=== PATIENT | female | born 1995 | race Caucasian/White ===

== ENCOUNTER 2020-04-13 17:18 | Emergency (ER) | payer OTHER ==
[~2020-04-13] VITALS: Ht 165.1 cm; Wt 80.0 kg
[2020-04-13 17:44] LABS: BASOPHILS % (AUTO) 1 % (0-1); EOSINOPHILS % (AUTO) 0 % (1-7); LYMPHOCYTES % (AUTO) 30 % (22-44); MEAN CORPUSCULAR HEMOGLOBIN 30.8 pg (27.0-34.8); MEAN CORPUSCULAR HGB CONC 34.1 g/dL (32.4-35.8); MEAN PLATELET VOLUME 8.8 fL (7.4-10.4); MONOCYTES % (AUTO) 6 % (2-9); NEUTROPHILS % (AUTO) 63 % (42-75); PLATELET COUNT 344 x10^3/uL (130-400); RED BLOOD COUNT 4.42 x10^6/uL (3.82-5.3); RED CELL DISTRIBUTION WIDTH 13.1 % (9.6-15.2)
[2020-04-13 17:51] LABS: MD NO
[2020-04-13 17:54] LABS: ALANINE AMINOTRANSFERASE 16 U/L (12-78); ALBUMIN 3.8 g/dL (3.4-5.0); ANION GAP 7 mmol/L (5-15); CALCIUM 8.4 mg/dL (8.5-10.1); CHLORIDE 106 mmol/L (98-107); CREATININE 0.61 mg/dL (0.55-1.02)
--- NOTE | 2020-04-13 18:10 | NUR ---
patient undressed, provided with gown and warm blanket, signifiant other at bedside.
[2020-04-13 18:11] LABS: ALKALINE PHOSPHATASE 39 U/L (45-117); BILIRUBIN,TOTAL 0.2 mg/dL (0.2-1.0); TOTAL PROTEIN 7.6 g/dL (6.4-8.2)
--- NOTE | 2020-04-13 18:57 | NUR ---
REPORT FROM MARY Connor RN ASSUMING CARE OF PT AT THIS TIME
--- NOTE | 2020-04-13 19:29 | NUR ---
SLIP SENT TO K FOR RHOGAM
[2020-04-13 19:37] VITALS: BP 101/57
--- NOTE | 2020-04-13 19:42 | NUR ---
consent obtained, rhogam given, pt tolerated well, will recheck vs per protocol Addendum: 04/13/20 at 1947 by JONA VERIFIED WITH CHELO GARCIA PRIOR TO ADMIN
[2020-04-13 20:04] VITALS: BP 111/62
--- NOTE | 2020-04-13 20:05 | NUR ---
vitals rechecked pt ok to dc per erp at this time. Patient/Caregiver given discharge instructions and they have confirmed that they understand the instructions. Patient ambulatory with steady gait.
== END 2020-04-13 20:11 | disposition home or self-care (01) ==
LOC: ED 19:12
DX: O20.0 Threatened abortion (principal); Z3A.09 9 weeks gestation of pregnancy
CPT/HCPCS: 36415; 76801; 80053; 84702; 85025; 86850; 86900; 99284; J2790; 36430; 99285

== ENCOUNTER 2020-08-29 18:39 | Observation (INO) | payer OTHER ==
[~2020-08-29] VITALS: Ht 165.1 cm; Wt 87.3 kg
[2020-08-29 19:01] LABS: MICROSCOPIC INDICATED
[2020-08-29] MEDS ORDERED: LACTATED RINGERS 1,000 ML IVBOLUS ONE (20:00)
[2020-08-29] MEDS ORDERED: ONDANSETRON 2MG/ML, 2ML IVPush ONE (20:00)
[2020-08-29 20:16] LABS: BASOPHILS % (AUTO) 0 % (0-1); EOSINOPHILS % (AUTO) 1 % (1-7); LYMPHOCYTES % (AUTO) 18 % (22-44); MEAN CORPUSCULAR HEMOGLOBIN 30.5 pg (27.0-34.8); MEAN CORPUSCULAR HGB CONC 34.1 g/dL (32.4-35.8); MEAN PLATELET VOLUME 9.3 fL (7.4-10.4); MONOCYTES % (AUTO) 8 % (2-9); NEUTROPHILS % (AUTO) 73 % (42-75); PLATELET COUNT 280 x10^3/uL (130-400); RED BLOOD COUNT 3.84 x10^6/uL (3.82-5.3); RED CELL DISTRIBUTION WIDTH 12.6 % (9.6-15.2)
[2020-08-29 20:20] LABS: MD NO
[2020-08-29 20:24] LABS: ALANINE AMINOTRANSFERASE 13 U/L (12-78); ALBUMIN 2.6 g/dL (3.4-5.0); ANION GAP 6 mmol/L (5-15); CALCIUM 8.3 mg/dL (8.5-10.1); CHLORIDE 108 mmol/L (98-107); CREATININE 0.47 mg/dL (0.55-1.02)
[2020-08-29 20:26] LABS: ALKALINE PHOSPHATASE 79 U/L (45-117); BILIRUBIN,TOTAL 0.3 mg/dL (0.2-1.0); TOTAL PROTEIN 6.8 g/dL (6.4-8.2)
[2020-08-29 21:47] LABS: MICROSCOPIC INDICATED
== END 2020-08-29 22:33 | disposition home or self-care (01) ==
LOC: LDOP 18:39 → INTOOBSV 21:29 → LDIP 21:29
PROVIDERS: ADMIT Obstetrics & Gynecology Maternal & Fetal Medicine; ATTEND Obstetrics & Gynecology Maternal & Fetal Medicine
DX: O24.419 Gestational diabetes mellitus in pregnancy, unspecified control (principal); Z3A.28 28 weeks gestation of pregnancy; Z79.899 Other long term (current) drug therapy
CPT/HCPCS: 59025; 80053; 81001; 82962; 83036; 85025; 87086; 96361; 96374; G0378; J2405; J7120; 96360

== ENCOUNTER 2020-09-26 20:36 | Outpatient (CLI) | payer OTHER ==
[2020-09-26 21:13] LABS: MICROSCOPIC INDICATED
[2020-09-27] MEDS ORDERED: NITROFURANTOIN (MACROBID) 100 MG CAPSULE ONE (00:42)
[2020-09-27] MEDS ORDERED: NITROFURANTOIN (MACROBID) 100 MG CAPSULE PO ONE (01:00)
== END 2020-09-27 01:16 | disposition home or self-care (01) ==
LOC: LDOP 20:36
PROVIDERS: ATTEND Obstetrics & Gynecology Maternal & Fetal Medicine
DX: O62.9 Abnormality of forces of labor, unspecified (principal); O24.419 Gestational diabetes mellitus in pregnancy, unspecified control; Z79.899 Other long term (current) drug therapy; Z3A.32 32 weeks gestation of pregnancy
CPT/HCPCS: 59025; 81001; 87086

== ENCOUNTER 2020-10-19 16:52 | Inpatient (IN) | payer OTHER ==
[~2020-10-19] VITALS: Ht 165.1 cm; Wt 87.0 kg
[2020-10-19 17:56] VITALS: BP 99/59
[2020-10-19] MEDS ORDERED: OXYTOCIN 30U/ 0.9% NaCL 500ML 500 ML IV ONE (18:30)
[2020-10-19] MEDS ORDERED: CALCIUM CARBONATE 500 MG TAB.CHEW PO PRN (18:30)
[2020-10-19] MEDS ORDERED: TERBUTALINE 1 MG/ML, 1ML SQ PRN (18:30)
[2020-10-19] MEDS ORDERED: ONDANSETRON 2MG/ML, 2ML IVPush PRN (18:30)
[2020-10-19] MEDS ORDERED: TERBUTALINE 1 MG/ML, 1ML IVPush PRN (18:30)
[2020-10-19] MEDS ORDERED: FENTANYL PF 100 MCG/2ML IVPush PRN (18:30)
[2020-10-19] MEDS ORDERED: FENTANYL PF 100 MCG/2ML IV PRN (18:30)
[2020-10-19] MEDS ORDERED: NEWBORN KIT ONE (18:37)
[2020-10-19] MEDS ORDERED: OXYTOCIN 30U/ 0.9% NaCL 500ML 500 ML ONE (18:37)
[2020-10-19 18:53] LABS: BASOPHILS % (AUTO) 1 % (0-1); EOSINOPHILS % (AUTO) 1 % (1-7); LYMPHOCYTES % (AUTO) 21 % (22-44); MEAN CORPUSCULAR HEMOGLOBIN 30.1 pg (27.0-34.8); MEAN PLATELET VOLUME 8.8 fL (7.4-10.4); MONOCYTES % (AUTO) 8 % (2-9); NEUTROPHILS % (AUTO) 71 % (42-75); PLATELET COUNT 268 x10^3/uL (130-400); RED BLOOD COUNT 3.48 x10^6/uL (3.82-5.3); RED CELL DISTRIBUTION WIDTH 13.7 % (9.6-15.2)
[2020-10-19] MEDS: LACTATED RINGERS 1,000 ML IV SCH (19:01)
[2020-10-19] MEDS ORDERED: LIDOCAINE 1%, 20ML ONE (19:22)
[2020-10-19] MEDS ORDERED: MISOPROSTOL 200 MCG TABLET ONE (19:22)
[2020-10-19] MEDS ORDERED: PENICILLIN GK 5,000,000 UNITS in DEXTROSE 5% 100 ML IVPB ONE (19:30)
[2020-10-19] MEDS ORDERED: OXYTOCIN 30U/ 0.9% NaCL 500ML 500 ML IV PRN (19:30)
[2020-10-19 20:01] LABS: AMPHETAMINE SCREEN, URINE Negative (Negative); BARBITURATE SCREEN, URINE Negative (Negative); BENZODIAZEPINE SCREEN, URINE Negative (Negative); CANNABINOID SCREEN, URINE Negative (Negative); COCAINE SCREEN, URINE Negative (Negative); METHADONE SCREEN, URINE Negative (Negative); OPIATE SCREEN, URINE Negative (Negative)
[2020-10-19] MEDS ORDERED: LEVEMIR 12 UNIT SC SCH ×2 (21:00→23:00)
[2020-10-19] MEDS: CALCIUM CARBONATE 500 MG TAB.CHEW PO PRN (23:04)
[2020-10-19] MEDS: PENICILLIN GK 2,500,000 UNITS in DEXTROSE 5% 100 ML IVPB SCH (23:21)
[2020-10-19] MEDS ORDERED: BUPIVACAINE 0.25% ONE (23:29)
[2020-10-19] MEDS ORDERED: FENTANYL/BUPIV./NS/PF 250 ML EPIDCONT ONE (23:29)
[2020-10-20] MEDS ORDERED: LACTATED RINGERS 1,000 ML IVBOLUS PRN (00:30)
[2020-10-20] MEDS ORDERED: FENTANYL/BUPIV./NS/PF 250 ML EPIDCONT SCH (00:30)
[2020-10-20] MEDS ORDERED: EPHEDRINE 50 MG/ML, 1ML IVPush PRN (00:30)
[2020-10-20] MEDS ORDERED: LACTATED RINGERS 1,000 ML IV SCH (00:30)
[2020-10-20] MEDS: PENICILLIN GK 2,500,000 UNITS in DEXTROSE 5% 100 ML IVPB SCH ×3 (03:22→11:23)
[2020-10-20] MEDS: CALCIUM CARBONATE 500 MG TAB.CHEW PO PRN (07:31)
[2020-10-20] MEDS: LACTATED RINGERS 1,000 ML IV SCH (09:41)
[2020-10-20] MEDS ORDERED: ACETAMINOPHEN 325 MG TABLET ONE (11:30)
[2020-10-20] MEDS ORDERED: ACETAMINOPHEN 325 MG TABLET PO PRN ×3 (11:30→18:00)
[2020-10-20] MEDS ORDERED: IBUPROFEN 600 MG TABLET ONE (16:29)
[2020-10-20] MEDS ORDERED: ONDANSETRON 2MG/ML, 2ML IV PRN (18:00)
[2020-10-20] MEDS ORDERED: DIPH,PERTUSS(ACELL),TET VAC/PF NC IM-VACC PRN (18:00)
[2020-10-20] MEDS ORDERED: OXYcodone/APAP 5/325MG TABLET PO PRN ×2 (18:00)
[2020-10-20] MEDS ORDERED: MAGNESIUM HYDROXIDE 8%, 30ML UDC PO PRN (18:00)
[2020-10-20] MEDS ORDERED: MISOPROSTOL 200 MCG TABLET PR PRN (18:00)
[2020-10-20] MEDS: OXYTOCIN 30U/ 0.9% NaCL 500ML 500 ML IV SCH (18:00)
[2020-10-20] MEDS ORDERED: SIMETHICONE 80 MG CHEW TAB PO PRN (18:00)
[2020-10-20] MEDS ORDERED: RHOGAM FROM BLOOD BANK 1 NOTE EA IM/IV ONE (18:00)
[2020-10-20 18:05] VITALS: BP 106/66
[2020-10-20 19:50] VITALS: BP 96/52
[2020-10-20] MEDS: DOCUSATE 100 MG CAPSULE PO PRN (19:57)
[2020-10-20 23:22] LABS: BASOPHILS % (AUTO) 0 % (0-1); EOSINOPHILS % (AUTO) 0 % (1-7); LYMPHOCYTES % (AUTO) 12 % (22-44); MEAN CORPUSCULAR HGB CONC 33.8 g/dL (32.4-35.8); MONOCYTES % (AUTO) 8 % (2-9); NEUTROPHILS % (AUTO) 79 % (42-75); PLATELET COUNT 228 x10^3/uL (130-400); RED BLOOD COUNT 3.23 x10^6/uL (3.82-5.3); RED CELL DISTRIBUTION WIDTH 13.9 % (9.6-15.2)
[2020-10-20 23:39] VITALS: BP 105/58
[2020-10-21] MEDS: IBUPROFEN 600 MG TABLET PO PRN ×3 (02:11→17:43)
[2020-10-21 03:27] VITALS: BP 106/67
[2020-10-21] MEDS: OXYTOCIN 30U/ 0.9% NaCL 500ML 500 ML IV SCH ×2 (04:00→14:00)
[2020-10-21 07:30] VITALS: BP 99/69
[2020-10-21] MEDS: DOCUSATE 100 MG CAPSULE PO PRN (08:42)
[2020-10-21] MEDS: PRENATAL VIT/IRON/FA 1 EACH TABLET PO SCH (08:43)
[2020-10-21 15:58] VITALS: BP 101/72
[2020-10-21 19:35] VITALS: BP 105/70
[2020-10-22] MEDS: IBUPROFEN 600 MG TABLET PO PRN (01:31)
[2020-10-22 08:00] VITALS: BP 113/74
[2020-10-22] MEDS: PRENATAL VIT/IRON/FA 1 EACH TABLET PO SCH (09:00)
[2020-10-22] MEDS: OXYTOCIN 30U/ 0.9% NaCL 500ML 500 ML IV SCH ×2 (10:00)
[2020-10-22] MEDS ORDERED: IBUP-1222 PO (13:13)
== END 2020-10-22 13:45 | disposition home or self-care (01) | DRG 806 ==
LOC: LDOP 16:52 → LDIP 18:22 → 2NW 10-20 17:25
PROVIDERS: ADMIT Obstetrics & Gynecology Maternal & Fetal Medicine; ATTEND Obstetrics & Gynecology Maternal & Fetal Medicine
PROC: 10E0XZZ Delivery of Products of Conception, External Approach (ICD-10-PCS; principal; 2020-10-20)
PROC: 3E0R3BZ Introduction of Anesthetic Agent into Spinal Canal, Percutaneous Approach (ICD-10-PCS; 2020-10-20)
PROC: 00HU33Z Insertion of Infusion Device into Spinal Canal, Percutaneous Approach (ICD-10-PCS; 2020-10-20)
PROC: 0UQGXZZ Repair Vagina, External Approach (ICD-10-PCS; 2020-10-20)
PROC: 3E0234Z Introduction of Serum, Toxoid and Vaccine into Muscle, Percutaneous Approach (ICD-10-PCS; 2020-10-21)
DX: O42.913 Preterm premature rupture of membranes, unspecified as to length of time between rupture and onset of labor, third trimester (principal); O71.4 Obstetric high vaginal laceration alone; Z37.0 Single live birth; O24.429 Gestational diabetes mellitus in childbirth, unspecified control; Z20.822 Contact with and (suspected) exposure to COVID-19; Z3A.36 36 weeks gestation of pregnancy
CPT/HCPCS: 36415; 87806; J3490; 80307; 82947; 82962; 85025; 85461; 86592; 86850; 86900; 87635; 89060; G0378; J2540; J2790; G0475; J2590; J3010; J7120; Q0114